=== PATIENT | male | born 1990 | race African-American/Black ===

== ENCOUNTER 2022-01-02 17:34 | Emergency (ER) | payer MEDICAID ==
[~2022-01-02] VITALS: Ht 177.8 cm; Wt 100.0 kg
[2022-01-02] MEDS ORDERED: HYDR-459 PO (17:54)
[2022-01-02] MEDS ORDERED: BUPR1FIL7 SL (17:54)
[2022-01-02] MEDS ORDERED: REVIA (17:54)
[2022-01-02] MEDS ORDERED: LORAZEPAM 2MG/ML CPJ IV STA (18:29)
[2022-01-02] MEDS ORDERED: SODIUM CHLORIDE 0.9% 1,000 ML IV ONE (18:30)
[2022-01-02 18:45] VITALS: BP 129/89
[2022-01-02] MEDS ORDERED: CLONIDINE 0.1MG TABLET PO ONE (18:45)
[2022-01-02] MEDS ORDERED: ONDANSETRON HCL 4MG/2ML INJ IV ONE (18:45)
[2022-01-02 18:56] LABS: CHLORIDE 110 mEq/L (98-107)
[2022-01-02 19:17] LABS: BASOPHILS % 0.3 % (0.0-2.0); EOSINOPHILS % 0.8 % (0.0-5.0); HEMATOCRIT. 45.8 % (42.0-52.0); HEMOGLOBIN. 15.3 g/dL (14.0-18.0); LYMPHOCYTES % 30.8 % (20.0-50.0); MEAN CORPUSCULAR HEMOGLOBIN 27.6 pg (28.0-32.0); MEAN CORPUSCULAR VOLUME 82.5 fL (80.0-94.0); MEAN PLATELET VOLUME 8.8 fl (7.4-10.4); MONOCYTES % 5.9 % (2.0-8.0); NEUTROPHILS % 62.2 % (40.0-76.0); PLATELET 203 x1000/uL (130-400); RED BLOOD CELL COUNT 5.55 mill/uL (4.7-6.1); RED CELL DISTRIBUTION WIDTH 14.8 % (11.6-14.6)
[2022-01-02 19:33] LABS: ETHANOL BLOOD < 10 mg/dL
[2022-01-02] MEDS ORDERED: ONDANSETRON HCL 4MG TABLET PO ONE (20:00)
[2022-01-02] MEDS ORDERED: LORAZEPAM 1MG TABLET PO ONE (20:00)
[2022-01-02] MEDS ORDERED: LOPERAMIDE HCL 2MG CAPSULE PO ONE (20:00)
[2022-01-02] MEDS ORDERED: ONDA4TAB50 MT (20:57)
[2022-01-02] MEDS ORDERED: IMOD MT (20:57)
== END 2022-01-02 18:42 | disposition home or self-care (01) ==
LOC: ER 17:34
DX: F11.23 Opioid dependence with withdrawal (principal)
CPT/HCPCS: 36415; 80053; 80307; 80320; 80329; 85025; 96361; 96374; 96375; 99284; J2060; J2405; J7030; Q0162; G0480